=== PATIENT | female | born 1955 | race Caucasian/White ===

== ENCOUNTER 2022-10-02 13:57 | Outpatient (CLI) | payer MEDICARE, SELFPAY ==
--- NOTE | ~2022-10-02 | MR_ITS ---
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 These were followed by axial T2-weigh lexii, diffusion weighted, gradient, and FLAIR images. Following intravenous administration of 20 cc Mu ltiHance gadolinium, T1-weighted fat-sat imaging was performed in the axial, coronal, and sagittal pl anes. Findings: There is no acute infarct or acute intracranial hemorrhage. There are mild chronic white ma tter changes in the periventricular white matter bilaterally, compatible with chronic microvascular i schemic change. Ventricles and subarachnoid spaces are mildly dilated. Orbits are unremarkable. Paranasal sinuses and mastoid air cells are clear. Major intracranial flow voids appear intact. Pituitary gland is mildly prominent overall, but no abnormal mass lesion seen in the sella or suprase llar regions. Infundibulum is unremarkable. Optic chiasm unremarkable. Sagittal midline structures ar e unremarkable. No abnormal postcontrast enhancement identified. IMPRESSION: Pituitary gland is mildly prominent overall, but no abnormal pituitary/sellar/suprasellar mass identi fied. Mild chronic white matter changes and mild generalized atrophy. Reviewed, dictated and finalized at location M. [facility] [employer] IMPRESSION: Pituitary gland is mildly prominent overall, but no abnormal pituitary/sellar/s uprasellar mass identified. Mild chronic white matter changes and mild generalized atrophy.
== END 2022-10-02 13:58 | disposition home or self-care (01) ==
PROVIDERS: PCP Nurse Practitioner; Visit Provider Internal Medicine
DX: R90.89 Other abnormal findings on diagnostic imaging of central nervous system (principal); R93.0 Abnormal findings on diagnostic imaging of skull and head, not elsewhere classified
CPT/HCPCS: 70553; A9577